=== PATIENT | male | born 1960 | race Caucasian/White ===

== ENCOUNTER 2018-06-01 17:55 | Inpatient (IN) ==
[2018-06-01] MEDS ORDERED: Folic Acid 1 MG in 0.9 % Sodium Chloride 50 ML IVPB ONE (18:40)
[2018-06-01] MEDS ORDERED: Thiamine (B-1) 100 MG in 0.9 % Sodium Chloride 50 ML IVPB ONE (18:40)
[2018-06-01] MEDS ORDERED: 0.9 % Sodium Chloride 500 ML IVC ONE (18:40)
[2018-06-01] MEDS ORDERED: MVI, adult with vitamin K 10 ML in 0.9 % Sodium Chloride 1,000 ML IVC ONE (18:40)
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
[2018-06-01 19:07] LABS: Basophils # 0.1 K/mcL (0.0-0.2); Basophils % 0.9 %; Eosinophils # 0.3 K/mcL (0.0-0.6); Hematocrit 50.7 % (37.5-50.1); Immature Granulocytes % 0.4 % (0-4); Lymphocytes # 1.6 K/mcL (0.6-4.6); Lymphocytes % 12.2 %; Mean Corpuscular HGB Conc 33.5 g/dL (31.6-35.5); Mean Corpuscular Volume 92.3 fL (83.0-100.0); Mean Platelet Volume 8.8 fL (9.4-12.4); Monocytes # 0.8 K/mcL (0.0-1.3); Monocytes % 6.1 %; Neutrophils # 9.9 K/mcL (1.6-8.9); Platelet Count 343 K/mcL (140-400); Red Blood Count 5.49 M/mcL (4.19-5.50); Segmented Neutrophils % 78.4 %
[2018-06-01 19:12] LABS: Prothrombin Time 10.9 Seconds (9.4-12.1)
[2018-06-01 19:29] LABS: Alanine Aminotransferase 18 Units/L (7-52); Albumin 4.5 g/dL (3.5-5.7); Albumin/Globulin Ratio 1.4 (1.1-2.2); Alkaline Phosphatase 94 Units/L (34-104); Aspartate Amino Transferase 25 Units/L (13-39); BUN/Creatinine Ratio 9 (6-26); Bilirubin,Total 0.6 mg/dL (0.3-1.0); Blood Urea Nitrogen 7 mg/dL (6-20); Calcium 9.3 mg/dL (8.6-10.3); Carbon Dioxide 26 mEq/L (23-29); Chloride 105 mEq/L (98-107); Ethanol 219 mg/dL (Less than 10); Globulin 3.2 g/dL (2.4-3.5); Glucose 88 mg/dL (70-105); Magnesium 2.2 mg/dL (1.6-2.6); Osmolality,Calculated 287 (280-300); Phosphorous 3.6 mg/dL (2.7-4.5); Potassium 4.1 mEq/L (3.5-5.1); Sodium 140 mEq/L (136-145); Total Protein 7.7 g/dL (6.4-8.9); eGFR For Non-African Americans > 60 (> 60)
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
[2018-06-01 20:26] LABS: Bilirubin,Urine Negative (Negative); Blood,Urine Negative (Negative); Clarity,Urine Clear (Clear); Color,Urine Yellow (Yellow); Glucose,Urine (UA) Normal (Normal); Ketones,Urine Trace mg/dL (Negative); Leukocyte Esterase,Urine Trace (Negative); Nitrite,Urine Negative (Negative); PH,Urine 5.5 pH Units (5.0-8.0); Protein,Urine Trace mg/dL (Neg-Trace); Specific Gravity,Urine >= 1.030 (1.010-1.025); Urobilinogen,Urine Normal (Normal)
[2018-06-01 20:27] LABS: Bacteria,Urine None Seen per hpf (None-Few); Hyaline Casts,Urine None Seen per lpf (None-Few); Squamous Epithelial Cell,Urine Few per lpf (None-Few); WBC,Urine 0-3 per hpf (0-3)
[2018-06-01 20:35] LABS: Amphetamine Screen,Urine Negative ng/mL (Cutoff=1000); Barbiturate Screen,Urine Negative ng/mL (Cutoff=200); Benzodiazepines Screen,Urine Negative ng/mL (Cutoff=200); Cannabinoid Screen,Urine Positive ng/mL (Cutoff = 50); Cocaine Screen,Urine Negative ng/mL (Cutoff= 300); Opiate Screen,Urine Negative ng/mL (Cutoff=300); Phencyclidine Screen,Urine Negative ng/mL (Cutoff=25)
[2018-06-01] MEDS ORDERED: *HR* LORazepam 2 MG/ML VIAL IVP ONE (20:40)
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
[2018-06-02] MEDS ORDERED: Ipratropium/Albuterol Neb 3 ML IH PRN (00:17)
[2018-06-02] MEDS: Ringers Solution, Lactated 1,000 ML IVC SCH ×3 (00:17→22:29)
[2018-06-02] MEDS: *HR* Heparin 5,000 UNIT/ML VIAL SQ SCH ×4 (00:24→22:32)
[2018-06-02 05:31] LABS: Basophils # 0.1 K/mcL (0.0-0.2); Basophils % 0.8 %; Eosinophils # 0.3 K/mcL (0.0-0.6); Eosinophils % 4.1 %; Hematocrit 43.7 % (37.5-50.1); Immature Granulocytes % 0.5 % (0-4); Lymphocytes # 1.3 K/mcL (0.6-4.6); Lymphocytes % 16.1 %; Mean Corpuscular HGB Conc 33.6 g/dL (31.6-35.5); Mean Corpuscular Hemoglobin 31.4 pg (28.0-33.3); Mean Corpuscular Volume 93.4 fL (83.0-100.0); Mean Platelet Volume 9.3 fL (9.4-12.4); Monocytes # 0.7 K/mcL (0.0-1.3); Neutrophils # 5.8 K/mcL (1.6-8.9); Platelet Count 274 K/mcL (140-400); Red Blood Count 4.68 M/mcL (4.19-5.50); Red Cell Distribution Width 14.1 % (11.5-14.5); Segmented Neutrophils % 70.5 %
[2018-06-02 05:32] LABS: Hemoglobin 14.7 g/dL (12.9-16.9)
[2018-06-02 05:54] LABS: Alanine Aminotransferase 13 Units/L (7-52); Albumin 3.4 g/dL (3.5-5.7); Albumin/Globulin Ratio 1.5 (1.1-2.2); Alkaline Phosphatase 76 Units/L (34-104); Aspartate Amino Transferase 18 Units/L (13-39); BUN/Creatinine Ratio 11 (6-26); Bilirubin,Total 0.6 mg/dL (0.3-1.0); Blood Urea Nitrogen 9 mg/dL (6-20); Calcium 8.3 mg/dL (8.6-10.3); Carbon Dioxide 27 mEq/L (23-29); Chloride 110 mEq/L (98-107); Globulin 2.2 g/dL (2.4-3.5); Glucose 129 mg/dL (70-105); Osmolality,Calculated 294 (280-300); Sodium 142 mEq/L (136-145); Total Protein 5.6 g/dL (6.4-8.9); eGFR For Non-African Americans > 60 (> 60)
[2018-06-02] MEDS: Gabapentin 400 MG CAPSULE PO SCH ×3 (08:50→22:31)
[2018-06-02] MEDS: Folic Acid 1 MG TABLET PO SCH (08:50)
[2018-06-02] MEDS: Multivit/Ca/Min/Fe/FA 1 TAB TABLET PO SCH (08:50)
[2018-06-02] MEDS: Thiamine (B-1) 100 MG TABLET PO SCH (08:50)
[2018-06-02] MEDS: (Buprenorphine Hcl/Naloxone Hcl [Suboxone 8 Mg-2 Mg SL) SL SCH (09:37)
[2018-06-02] MEDS: *HR* Buprenorphine HCl 2 MG SUBLINGUAL TABLET SL SCH (11:05)
[2018-06-03 04:16] LABS: Basophils # 0.1 K/mcL (0.0-0.2); Basophils % 0.5 %; Eosinophils # 0.4 K/mcL (0.0-0.6); Eosinophils % 3.8 %; Hemoglobin 13.8 g/dL (12.9-16.9); Immature Granulocytes % 0.4 % (0-4); Lymphocytes # 1.4 K/mcL (0.6-4.6); Lymphocytes % 14.7 %; Mean Corpuscular HGB Conc 33.7 g/dL (31.6-35.5); Mean Corpuscular Volume 92.1 fL (83.0-100.0); Mean Platelet Volume 9.5 fL (9.4-12.4); Monocytes # 0.7 K/mcL (0.0-1.3); Neutrophils # 7.1 K/mcL (1.6-8.9); Platelet Count 267 K/mcL (140-400); Red Blood Count 4.45 M/mcL (4.19-5.50); Red Cell Distribution Width 13.8 % (11.5-14.5); Segmented Neutrophils % 73.6 %
[2018-06-03 04:35] LABS: BUN/Creatinine Ratio 14 (6-26); Blood Urea Nitrogen 11 mg/dL (6-20); Calcium 8.6 mg/dL (8.6-10.3); Carbon Dioxide 30 mEq/L (23-29); Chloride 108 mEq/L (98-107); Glucose 98 mg/dL (70-105); Osmolality,Calculated 289 (280-300); Potassium 4.1 mEq/L (3.5-5.1); Sodium 140 mEq/L (136-145); eGFR For Non-African Americans > 60 (> 60)
[2018-06-03] MEDS: Ringers Solution, Lactated 1,000 ML IVC SCH ×4 (06:27→21:25)
[2018-06-03] MEDS: *HR* Heparin 5,000 UNIT/ML VIAL SQ SCH ×3 (06:29→21:14)
[2018-06-03] MEDS: Gabapentin 400 MG CAPSULE PO SCH ×3 (08:59→21:13)
[2018-06-03] MEDS: *HR* Buprenorphine HCl 2 MG SUBLINGUAL TABLET SL SCH (08:59)
[2018-06-03] MEDS: Folic Acid 1 MG TABLET PO SCH (09:00)
[2018-06-03] MEDS: Multivit/Ca/Min/Fe/FA 1 TAB TABLET PO SCH (09:00)
[2018-06-03] MEDS: (Buprenorphine Hcl/Naloxone Hcl [Suboxone 8 Mg-2 Mg SL) SL SCH (09:00)
[2018-06-03] MEDS: Thiamine (B-1) 100 MG TABLET PO SCH (09:00)
[2018-06-03] MEDS ORDERED: CloNIDine Patch 0.1 MG PATCH (WEEKLY) TD SCH (13:45)
--- NOTE | 2018-06-03 14:26 | Internal Med Progress Note ---
Hospitalist Progress Note - Encounter Date of Encounter: 06/03/18 Time of Encounter: 14:24 - Subjective Interval History: Patient has been shaking in both upper extremities for the last few hours. He also has been feeling anxious. He also tells me that he wants to quit drinking and wants to talk to social work regarding resources. - Exam Vitals: Temp Pulse Resp BP Pulse Ox 98.4 F 70 16 156/93 98 06/03/18 11:43 06/03/18 11:43 06/03/18 11:43 06/03/18 11:43 06/03/18 11:43 - Assessment and Plan (1) Alcohol abuse Current Visit: Yes Status: Chronic Assessment and Plan: Counseled however he is inebriated. Once more sober, psychiatric social worker assistance for detox centers. 06/03-patient is currently sober to talk to. He will need social work assistance and they have been consulted for help with alcohol abuse. He is a very high risk for withdrawal and we will continue to maintain him on CIWA protocol. He already has ongoing tremors and I will initiate clonidine patch. I will already spoken to the nurses and they will be on the monitoring for withdrawal protocol (2) Low back pain Current Visit: No Status: Chronic (3) Alcoholic intoxication Current Visit: Yes Status: Resolved Assessment and Plan: Will place on fall, aspiration and seizure precautions. Lorazepam prn. IV banana bag and ongoing fluids with LR. Will supplement lytes accordingly. Close obs. CIWA. 06/03-continue thiamine and folate acid. Education provided regarding cessation. Patient wants to be sober at this point and will initiate social work (4) COPD (chronic obstructive pulmonary disease) Current Visit: Yes Status: Chronic Assessment and Plan: Duonebs prn. (5) DVT prophylaxis Current Visit: Yes Status: Acute (6) Polycythemia Current Visit: Yes Status: Acute DVT Prophylaxis: Subcutaneous heparin - Time Spent with Patient Total time spent is greater than 50% in coordination of care (as documented) at patient's floor/unit and/or counseling patient: 25 - 35 minutes Plan of Care Discussed with: patient Internal Medicine: Result - Labs CBC & Chem 7: 06/03/18 03:54 06/03/18 03:54 Labs: Short CBC 06/03/18 Range/Units 03:54 WBC 9.7 (4.3-11.1) K/mcL Hgb 13.8 (12.9-16.9) g/dL Hct 41.0 (37.5-50.1) % Plt Count 267 (140-400) K/mcL Neutrophils # 7.1 (1.6-8.9) K/mcL BMP 06/03/18 03:54 Sodium 140 Potassium 4.1 Chloride 108 H Carbon Dioxide 30 H BUN 11 Creatinine 0.78 Glucose 98 Calcium 8.6 - ABG Interpretation ABG results: PT/INR, D-dimer PT 10.9 Seconds (9.4-12.1) 06/01/18 18:57 Consult Discharge Plan - Plan Referrals: Mason Todd MD [Primary Care Provider] - 06/10/18 1:00 pm (2) Low back pain Qualifiers: Chronicity: chronic Back pain laterality: midline Sciatica presence: with sciatica Sciatica laterality: sciatica laterality unspecified Qualified Code(s ): M54.40 - Lumbago with sciatica, unspecified side; G89.29 - Other chronic pain (3) Alcoholic intoxication Qualifiers: Complication of substance-induced condition: with unspecified complication Qualified Code(s): F10.929 - Alcohol use, unspecified with intoxication, unspecified (4) COPD (chronic obstructive pulmonary disease) Qualifiers: COPD type: emphysema Emphysema type: panlobular Qualified Code(s): J43.1 - Panlobular emphysema
[2018-06-04] MEDS: *HR* Heparin 5,000 UNIT/ML VIAL SQ SCH ×3 (06:15→21:57)
[2018-06-04] MEDS: (Buprenorphine Hcl/Naloxone Hcl [Suboxone 8 Mg-2 Mg SL) SL SCH (08:37)
[2018-06-04] MEDS: Ringers Solution, Lactated 1,000 ML IVC SCH ×3 (08:38→20:00)
[2018-06-04] MEDS: Thiamine (B-1) 100 MG TABLET PO SCH (09:01)
[2018-06-04] MEDS: Folic Acid 1 MG TABLET PO SCH (09:01)
[2018-06-04] MEDS: Multivit/Ca/Min/Fe/FA 1 TAB TABLET PO SCH (09:01)
[2018-06-04] MEDS: Gabapentin 400 MG CAPSULE PO SCH ×3 (09:01→21:56)
[2018-06-04] MEDS: *HR* Buprenorphine HCl 2 MG SUBLINGUAL TABLET SL SCH (09:01)
[2018-06-04] MEDS: *HR* LORazepam 2 MG/ML VIAL IVP PRN ×2 (09:02→18:31)
--- NOTE | 2018-06-04 15:24 | Internal Med Progress Note ---
Hospitalist Progress Note - Encounter Date of Encounter: 06/04/18 Time of Encounter: 11:45 - Subjective Interval History: Was somnolent but arousable. He received Ativan just a short while prior to my examination or increasing cIWA score - Exam Vitals: Temp Pulse Resp BP Pulse Ox 98.5 F 72 17 139/79 95 06/04/18 11:59 06/04/18 11:59 06/04/18 11:59 06/04/18 11:59 06/04/18 11:59 Exam: GENERAL: Alert, NECK: No jugulovenous distention, No carotid bruits, Carotid pulse normal contour, Supple LUNGS: Lungs clear to auscultation, Good diaphragmatic excursion CARDIAC: Normal S1 and S2; no rubs, murmurs, or gallops ABDOMEN: Abdomen soft, non-tender, BS normal, No masses or organomegaly EXTREMITIES: Mild generalized tremor seen, Extremities normal, no deformities, edema, clubbing or skin discoloration. Good capillary refill., No ulcers - Assessment and Plan (1) Alcohol abuse Current Visit: Yes Status: Chronic Assessment and Plan: Counseled however he is inebriated. 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 06/03-patient is currently sober to talk to. He will need social work assistance and they have been consulted for help with alcohol abuse. He is a very high risk for withdrawal and we will continue to maintain him on CIWA protocol. He already has ongoing tremors and I will initiate clonidine patch. I will already spoken to the nurses and they will be on the monitoring for withdrawal protocol 06/04-7th grade social studies teacher made aware and is working on getting him resources for rehabilitation. Physical therapy also has been consulted and most likely patient will need rehabilitation given his weakness and deconditioning. He remains a high risk of withdrawals and delirium tremens. We will continue supportive treatment and monitor CIWA scores closely (2) Low back pain Current Visit: No Status: Chronic Assessment and Plan: Will resume gabapentin. (3) Alcoholic intoxication Current Visit: Yes Status: Resolved (4) COPD (chronic obstructive pulmonary disease) Current Visit: Yes Status: Chronic (5) DVT prophylaxis Current Visit: Yes Status: Acute (6) Polycythemia Current Visit: Yes Status: Suspected - Time Spent with Patient Total time spent is greater than 50% in coordination of care (as documented) at patient's floor/unit and/or counseling patient: 25 - 35 minutes Plan of Care Discussed with: patient Internal Medicine: Result - Labs CBC & Chem 7: 06/03/18 03:54 06/03/18 03:54 - ABG Interpretation ABG results: PT/INR, D-dimer PT 10.9 Seconds (9.4-12.1) 06/01/18 18:57 Consult Discharge Plan - Plan Referrals: Mason Todd MD [Primary Care Provider] - 06/10/18 1:00 pm (2) Low back pain Qualifiers: Chronicity: chronic Back pain laterality: midline Sciatica presence: with sciatica Sciatica laterality: sciatica laterality unspecified Qualified Code(s ): M54.40 - Lumbago with sciatica, unspecified side; G89.29 - Other chronic pain (3) Alcoholic intoxication Qualifiers: Complication of substance-induced condition: with unspecified complication Qualified Code(s): F10.929 - Alcohol use, unspecified with intoxication, unspecified (4) COPD (chronic obstructive pulmonary disease) Qualifiers: COPD type: emphysema Emphysema type: panlobular Qualified Code(s): J43.1 - Panlobular emphysema
[2018-06-05] MEDS: Ringers Solution, Lactated 1,000 ML IVC SCH ×2 (05:56→16:01)
[2018-06-05] MEDS: *HR* Heparin 5,000 UNIT/ML VIAL SQ SCH ×3 (05:57→21:19)
[2018-06-05 09:59] LABS: Basophils % 0.5 %; Eosinophils # 0.4 K/mcL (0.0-0.6); Eosinophils % 4.7 %; Hematocrit 37.1 % (37.5-50.1); Hemoglobin 12.3 g/dL (12.9-16.9); Immature Granulocytes % 0.5 % (0-4); Lymphocytes # 1.2 K/mcL (0.6-4.6); Lymphocytes % 13.5 %; Mean Corpuscular HGB Conc 33.2 g/dL (31.6-35.5); Mean Corpuscular Hemoglobin 30.8 pg (28.0-33.3); Mean Corpuscular Volume 92.8 fL (83.0-100.0); Mean Platelet Volume 9.7 fL (9.4-12.4); Monocytes # 0.7 K/mcL (0.0-1.3); Monocytes % 7.6 %; Neutrophils # 6.3 K/mcL (1.6-8.9); Platelet Count 201 K/mcL (140-400); Red Cell Distribution Width 13.4 % (11.5-14.5); Segmented Neutrophils % 73.2 %
[2018-06-05] MEDS: Multivit/Ca/Min/Fe/FA 1 TAB TABLET PO SCH (09:59)
[2018-06-05] MEDS: Folic Acid 1 MG TABLET PO SCH (09:59)
[2018-06-05] MEDS: Gabapentin 400 MG CAPSULE PO SCH ×3 (09:59→20:38)
[2018-06-05] MEDS: Thiamine (B-1) 100 MG TABLET PO SCH (10:03)
[2018-06-05] MEDS: *HR* Buprenorphine HCl 2 MG SUBLINGUAL TABLET SL SCH (10:04)
[2018-06-05] MEDS: (Buprenorphine Hcl/Naloxone Hcl [Suboxone 8 Mg-2 Mg SL) SL SCH (10:04)
[2018-06-05] MEDS: *HR* LORazepam 2 MG/ML VIAL IVP PRN ×2 (10:05→21:19)
[2018-06-05 10:44] LABS: Alanine Aminotransferase 11 Units/L (7-52); Albumin/Globulin Ratio 1.4 (1.1-2.2); Alkaline Phosphatase 70 Units/L (34-104); Aspartate Amino Transferase 15 Units/L (13-39); BUN/Creatinine Ratio 9 (6-26); Bilirubin,Total 0.6 mg/dL (0.3-1.0); Blood Urea Nitrogen 7 mg/dL (6-20); Calcium 8.2 mg/dL (8.6-10.3); Carbon Dioxide 25 mEq/L (23-29); Chloride 107 mEq/L (98-107); Globulin 2.1 g/dL (2.4-3.5); Glucose 118 mg/dL (70-105); Osmolality,Calculated 285 (280-300); Potassium 3.8 mEq/L (3.5-5.1); Sodium 138 mEq/L (136-145); Total Protein 5.1 g/dL (6.4-8.9); eGFR For Non-African Americans > 60 (> 60)
--- NOTE | 2018-06-05 11:52 | Internal Med Progress Note ---
Hospitalist Progress Note - Encounter Date of Encounter: 06/05/18 Time of Encounter: 11:49 - Subjective Interval History: Continues to be somnolent but arousable. CIWA scores are gradually climbing up. He was noted to be more anxious early this morning by the nursing staff and slightly more tremors - Exam Vitals: Temp Pulse Resp BP Pulse Ox 98.7 F 61 15 137/85 95 06/05/18 11:31 06/05/18 11:31 06/05/18 11:31 06/05/18 11:31 06/05/18 11:31 Exam: GENERAL: Drowsy but arousable NECK: No jugulovenous distention, No carotid bruits, Carotid pulse normal contour, Supple LUNGS: Lungs clear to auscultation, Good diaphragmatic excursion CARDIAC: Normal S1 and S2; no rubs, murmurs, or gallops ABDOMEN: Abdomen soft, non-tender, BS normal, No masses or organomegaly EXTREMITIES: Generalized tremors positive PULSES: 2+ radial, 2+ carotid - Assessment and Plan (1) Alcohol abuse Current Visit: Yes Status: Chronic Assessment and Plan: Counseled however he is inebriated. Once more sober, social service agency director assistance for detox centers. 06/03-patient is currently sober to talk to. He will need social work assistance and they have been consulted for help with alcohol abuse. He is a very high risk for withdrawal and we will continue to maintain him on CIWA protocol. He already has ongoing tremors and I will initiate clonidine patch. I will already spoken to the nurses and they will be on the monitoring for withdrawal protocol 06/04-social service agency director made aware and is working on getting him resources for rehabilitation. Physical therapy also has been consulted and most likely patient will need rehabilitation given his weakness and deconditioning. He remains a high risk of withdrawals and delirium tremens. We will continue supportive treatment and monitor CIWA scores closely 06/05-CIWA score worsening. Continues to medicated with Ativan serially. High risk for full-blown delirium tremens. He wishes sobriety and wants to detox. line worker working on a plan for discharge. He also has a complicated social situation given he is on house arrest as well as will require longterm facility based on physical therapy and occupational therapy evaluation (2) Low back pain Current Visit: No Status: Chronic Assessment and Plan: Will resume gabapentin. (3) Alcoholic intoxication Current Visit: Yes Status: Resolved Assessment and Plan: Will place on fall, aspiration and seizure precautions. Lorazepam prn. IV banana bag and ongoing fluids with LR. Will supplement lytes accordingly. Close obs. CIWA. 06/03-continue thiamine and folate acid. Education provided regarding cessation. Patient wants to be sober at this point and will initiate social work 06/05-continues to be a high risk for delirium tremens. Continue thiamine and folic acid. Cessation education continued. line worker working on disposition planning (4) COPD (chronic obstructive pulmonary disease) Current Visit: Yes Status: Chronic (5) DVT prophylaxis Current Visit: Yes Status: Acute (6) Polycythemia Current Visit: Yes Status: Suspected - Time Spent with Patient Total time spent is greater than 50% in coordination of care (as documented) at patient's floor/unit and/or counseling patient: 25 - 35 minutes Plan of Care Discussed with: patient Internal Medicine: Result - Labs CBC & Chem 7: 06/05/18 09:43 06/05/18 09:43 Labs: Short CBC 06/05/18 Range/Units 09:43 WBC 8.6 (4.3-11.1) K/mcL Hgb 12.3 L D (12.9-16.9) g/dL Hct 37.1 L (37.5-50.1) % Plt Count 201 (140-400) K/mcL Neutrophils # 6.3 (1.6-8.9) K/mcL BMP 06/05/18 09:43 Sodium 138 Potassium 3.8 Chloride 107 Carbon Dioxide 25 BUN 7 Creatinine 0.76 Glucose 118 H Calcium 8.2 L Liver Function 06/05/18 Range/Units 09:43 Total Bilirubin 0.6 (0.3-1.0) mg/dL AST 15 (13-39) Units/L ALT 11 (7-52) Units/L Alkaline Phosphatase 70 (34-104) Units/L Albumin 3.0 L (3.5-5.7) g/dL - ABG Interpretation ABG results: PT/INR, D-dimer PT 10.9 Seconds (9.4-12.1) 06/01/18 18:57 Consult Discharge Plan - Plan Referrals: Mason Todd MD [Primary Care Provider] - 06/10/18 1:00 pm (2) Low back pain Qualifiers: Chronicity: chronic Back pain laterality: midline Sciatica presence: with sciatica Sciatica laterality: sciatica laterality unspecified Qualified Code(s ): M54.40 - Lumbago with sciatica, unspecified side; G89.29 - Other chronic pain (3) Alcoholic intoxication Qualifiers: Complication of substance-induced condition: with unspecified complication Qualified Code(s): F10.929 - Alcohol use, unspecified with intoxication, unspecified (4) COPD (chronic obstructive pulmonary disease) Qualifiers: COPD type: emphysema Emphysema type: panlobular Qualified Code(s): J43.1 - Panlobular emphysema
[2018-06-06] MEDS: Ringers Solution, Lactated 1,000 ML IVC SCH ×3 (00:17→17:05)
[2018-06-06] MEDS: *HR* Heparin 5,000 UNIT/ML VIAL SQ SCH (05:57)
[2018-06-06] MEDS: (Buprenorphine Hcl/Naloxone Hcl [Suboxone 8 Mg-2 Mg SL) SL SCH (08:44)
[2018-06-06] MEDS: Thiamine (B-1) 100 MG TABLET PO SCH (08:45)
[2018-06-06] MEDS: Gabapentin 400 MG CAPSULE PO SCH ×3 (08:45→20:12)
[2018-06-06] MEDS: Folic Acid 1 MG TABLET PO SCH (08:45)
[2018-06-06] MEDS: *HR* Buprenorphine HCl 2 MG SUBLINGUAL TABLET SL SCH (08:45)
[2018-06-06] MEDS: Multivit/Ca/Min/Fe/FA 1 TAB TABLET PO SCH (08:45)
[2018-06-06 11:25] LABS: Hematocrit 41.7 % (37.5-50.1); Hemoglobin 13.8 g/dL (12.9-16.9)
[2018-06-06] MEDS: *HR* LORazepam 2 MG/ML VIAL IVP PRN (15:08)
--- NOTE | 2018-06-06 15:54 | Internal Med Progress Note ---
Hospitalist Progress Note - Encounter Date of Encounter: 06/06/18 Time of Encounter: 11:00 - Subjective Interval History: Patient seen and examined at bedside. Tremors on exam. Pt. states that he is feeling better but tremors are bothersome today. He states that he joined the [facility] for alcohol abuse approx. one week ago but continued drinking. States that he knows he has a problem and needs rehabilitation. He also reports that he needs to go to [facility] for rehab but is currently under house arrest. SW trying to find solution. Pt. denies any CP, SOB, nausea, vomiting or other sx at this time. Pt. is A&O x3 and conversational on exam. - Exam Vitals: Temp Pulse Resp BP Pulse Ox 98.6 F 73 16 167/89 96 06/06/18 11:53 06/06/18 11:53 06/06/18 11:53 06/06/18 11:53 06/06/18 11:53 Exam: PHYSICAL EXAM: GENERAL: A&O x3, conversational NECK: No jugulovenous distention, No carotid bruits, Carotid pulse normal contour, Supple LUNGS: Lungs clear to auscultation, Good diaphragmatic excursion CARDIAC: Normal S1 and S2; no rubs, murmurs, or gallops ABDOMEN: Abdomen soft, non-tender, BS normal, No masses or organomegaly EXTREMITIES: Generalized tremors positive PULSES: 2+ radial, 2+ carotid PSYCHIATRIC: Anxious mood and affect SKIN: Dry and intact - Assessment and Plan (1) HTN (hypertension) Current Visit: Yes Status: Acute Assessment and Plan: Acute HTN, most likely d/t withdrawal. IVP hydralazine 10 mg every 6 hours when necessary with parameters ordered. (2) Hypocalcemia Current Visit: Yes Status: Acute Assessment and Plan: 8.2 today. PO calcium carbonate TID. Monitor f/u labs. (3) Alcohol abuse Current Visit: Yes Status: Chronic Assessment and Plan: CIWA scale continued Pt. is A&O x3 but has tremors on exam Pt. reports signing up for [facility] approx. 1 week ago but has continued to drink Pt. understands he has a problem and is willing to try rehabilitation but is currently under house arrest. SW attempting to figure out placement [facility] Continue supportive measures and monitor pt. and f/u labs (4) Low back pain Current Visit: Yes Status: Chronic Assessment and Plan: Continue gabapentin. (5) COPD (chronic obstructive pulmonary disease) Current Visit: Yes Status: Chronic Assessment and Plan: Duonebs and supplemental O2 PRN (6) Polycythemia Current Visit: Yes Status: Suspected (7) Alcoholic intoxication Current Visit: Yes Status: Resolved Assessment and Plan: Currently resolved. Continue CIWA scale and Ativan for agitation PRN Continue vitamin supplementation SW working on rehab placement d/t pts. house arrest status Monitor pt. and f/u labs (8) DVT prophylaxis Current Visit: Yes Status: Acute Assessment and Plan: Continue SQ heparin. - Summary of Assessment and Plan Summary of Assessment and Plan: Continue to work w/SW for rehab placement. - Time Spent with Patient Total time spent is greater than 50% in coordination of care (as documented) at patient's floor/unit and/or counseling patient: 25 - 35 minutes Plan of Care Discussed with: patient Internal Medicine: Result - Labs CBC & Chem 7: 06/06/18 11:11 06/05/18 09:43 Labs: Short CBC 06/06/18 Range/Units 11:11 Hgb 13.8 D (12.9-16.9) g/dL Hct 41.7 (37.5-50.1) % - ABG Interpretation ABG results: PT/INR, D-dimer PT 10.9 Seconds (9.4-12.1) 06/01/18 18:57 - VTE Documentation of Mechanical Device: Intermittent pneumatic compression device Consult Discharge Plan - Plan Referrals: Mason Todd MD [Primary Care Provider] - 06/10/18 1:00 pm (1) HTN (hypertension) Qualifiers: Hypertension type: unspecified Qualified Code(s): I10 - Essential (primary) hypertension (4) Low back pain Qualifiers: Chronicity: chronic Back pain laterality: midline Sciatica presence: with sciatica Sciatica laterality: sciatica laterality unspecified Qualified Code(s ): M54.40 - Lumbago with sciatica, unspecified side; G89.29 - Other chronic pain (5) COPD (chronic obstructive pulmonary disease) Qualifiers: COPD type: emphysema Emphysema type: panlobular Qualified Code(s): J43.1 - Panlobular emphysema (7) Alcoholic intoxication Qualifiers: Complication of substance-induced condition: with unspecified complication Qualified Code(s): F10.929 - Alcohol use, unspecified with intoxication, unspecified
[2018-06-06 17:13] LABS: Hematocrit 39.2 % (37.5-50.1); Hemoglobin 13.3 g/dL (12.9-16.9)
[2018-06-06 22:52] LABS: Hematocrit 38.5 % (37.5-50.1); Hemoglobin 13.1 g/dL (12.9-16.9)
[2018-06-07 06:13] LABS: Basophils # 0.1 K/mcL (0.0-0.2); Basophils % 0.7 %; Eosinophils # 0.4 K/mcL (0.0-0.6); Eosinophils % 4.6 %; Hematocrit 39.9 % (37.5-50.1); Hemoglobin 13.2 g/dL (12.9-16.9); Immature Granulocytes % 0.4 % (0-4); Lymphocytes # 1.5 K/mcL (0.6-4.6); Lymphocytes % 16.9 %; Mean Corpuscular HGB Conc 33.1 g/dL (31.6-35.5); Mean Corpuscular Hemoglobin 30.5 pg (28.0-33.3); Mean Corpuscular Volume 92.1 fL (83.0-100.0); Mean Platelet Volume 10.2 fL (9.4-12.4); Monocytes # 0.8 K/mcL (0.0-1.3); Monocytes % 9.3 %; Neutrophils # 6.1 K/mcL (1.6-8.9); Platelet Count 224 K/mcL (140-400); Red Blood Count 4.33 M/mcL (4.19-5.50); Red Cell Distribution Width 13.5 % (11.5-14.5); Segmented Neutrophils % 68.1 %
[2018-06-07 06:35] LABS: Alanine Aminotransferase 13 Units/L (7-52); Albumin 3.2 g/dL (3.5-5.7); Albumin/Globulin Ratio 1.4 (1.1-2.2); Alkaline Phosphatase 70 Units/L (34-104); Aspartate Amino Transferase 15 Units/L (13-39); BUN/Creatinine Ratio 10 (6-26); Bilirubin,Total 0.6 mg/dL (0.3-1.0); Blood Urea Nitrogen 8 mg/dL (6-20); Calcium 8.4 mg/dL (8.6-10.3); Carbon Dioxide 26 mEq/L (23-29); Chloride 108 mEq/L (98-107); Globulin 2.3 g/dL (2.4-3.5); Glucose 95 mg/dL (70-105); Osmolality,Calculated 292 (280-300); Potassium 3.8 mEq/L (3.5-5.1); Sodium 142 mEq/L (136-145); Total Protein 5.5 g/dL (6.4-8.9); eGFR For Non-African Americans > 60 (> 60)
[2018-06-07] MEDS: Thiamine (B-1) 100 MG TABLET PO SCH (09:35)
[2018-06-07] MEDS: (Buprenorphine Hcl/Naloxone Hcl [Suboxone 8 Mg-2 Mg SL) SL SCH (09:35)
[2018-06-07] MEDS: *HR* Buprenorphine HCl 2 MG SUBLINGUAL TABLET SL SCH (09:35)
[2018-06-07] MEDS: Gabapentin 400 MG CAPSULE PO SCH ×3 (09:35→20:25)
[2018-06-07] MEDS: Multivit/Ca/Min/Fe/FA 1 TAB TABLET PO SCH (09:35)
[2018-06-07] MEDS: Folic Acid 1 MG TABLET PO SCH (09:35)
[2018-06-07] MEDS: *HR* LORazepam 2 MG/ML VIAL IVP PRN (09:42)
[2018-06-07] MEDS ORDERED: *HR* LORazepam 2 MG/ML VIAL IVP ONE (10:26)
--- NOTE | 2018-06-07 14:24 | Internal Med Progress Note ---
Hospitalist Progress Note - Encounter Date of Encounter: 06/07/18 Time of Encounter: 09:20 (Still awaiting SW placement d/t weekend) - Subjective Interval History: Patient seen and examined at bedside. Tremors improved. Pt. states that he is feeling better today. Pt. states that he does not want to relapse and start drinking. Awaiting SW to find placement solution. Pt. denies any CP, SOB, nausea , vomiting or other sx at this time. Pt. is A&O x3 and conversational on exam. - Exam Vitals: Temp Pulse Resp BP Pulse Ox 98.2 F 75 17 154/83 97 06/07/18 12:09 06/07/18 12:09 06/07/18 12:09 06/07/18 12:06/07/18 12:09 Exam: PHYSICAL EXAM: GENERAL: A&O x3, conversational NECK: No jugulovenous distention, No carotid bruits, Carotid pulse normal contour, Supple LUNGS: Lungs clear to auscultation, Good diaphragmatic excursion CARDIAC: Normal S1 and S2; no rubs, murmurs, or gallops ABDOMEN: Abdomen soft, non-tender, BS normal, No masses or organomegaly EXTREMITIES: Tremors improved greatly PULSES: 2+ radial, 2+ carotid PSYCHIATRIC: Normal mood and affect SKIN: Dry and intact - Assessment and Plan (1) HTN (hypertension) Current Visit: Yes Status: Acute Assessment and Plan: Continue IVP hydralazine 10 mg every 6 hours when necessary with parameters ordered. (2) Hypocalcemia Current Visit: Yes Status: Acute Assessment and Plan: 8.4 today. PO calcium carbonate TID. Monitor f/u labs. (3) Alcohol abuse Current Visit: Yes Status: Chronic Assessment and Plan: CIWA scale continued Pt. is A&O x3 Pt. states he does not want to relapse Continue Ativan as needed Continue supportive measures and monitor pt. and f/u labs (4) Low back pain Current Visit: Yes Status: Chronic Assessment and Plan: Continue gabapentin. (5) COPD (chronic obstructive pulmonary disease) Current Visit: Yes Status: Chronic Assessment and Plan: Duonebs and supplemental O2 PRN (6) Polycythemia Current Visit: Yes Status: Resolved Assessment and Plan: Resolved. (7) Alcoholic intoxication Current Visit: Yes Status: Resolved Assessment and Plan: Currently resolved. Continue CIWA scale and Ativan for agitation PRN Continue vitamin supplementation SW working on rehab placement d/t pts. house arrest status Monitor pt. and f/u labs (8) DVT prophylaxis Current Visit: Yes Status: Acute Assessment and Plan: Continue SQ heparin. - Summary of Assessment and Plan Summary of Assessment and Plan: Continue to work w/SW for rehab placement. - Time Spent with Patient Total time spent is greater than 50% in coordination of care (as documented) at patient's floor/unit and/or counseling patient: less than 15 minutes Plan of Care Discussed with: patient Internal Medicine: Result - Labs CBC & Chem 7: 06/07/18 05:29 06/07/18 05:29 Labs: Short CBC 06/06/18 06/06/18 06/07/18 Range/Units 17:03 22:43 05:29 WBC 9.0 (4.3-11.1) K/mcL Hgb 13.3 13.1 13.2 (12.9-16.9) g/dL Hct 39.2 38.5 39.9 (37.5-50.1) % Plt Count 224 (140-400) K/mcL Neutrophils # 6.1 (1.6-8.9) K/mcL BMP 06/07/18 05:29 Sodium 142 Potassium 3.8 Chloride 108 H Carbon Dioxide 26 BUN 8 Creatinine 0.83 Glucose 95 Calcium 8.4 L Liver Function 06/07/18 Range/Units 05:29 Total Bilirubin 0.6 (0.3-1.0) mg/dL AST 15 (13-39) Units/L ALT 13 (7-52) Units/L Alkaline Phosphatase 70 (34-104) Units/L Albumin 3.2 L (3.5-5.7) g/dL - ABG Interpretation ABG results: PT/INR, D-dimer PT 10.9 Seconds (9.4-12.1) 06/01/18 18:57 - VTE Documentation of Mechanical Device: Intermittent pneumatic compression device Consult Discharge Plan - Plan Referrals: Mason Todd MD [Primary Care Provider] - 06/10/18 1:00 pm (1) HTN (hypertension) Qualifiers: Hypertension type: unspecified Qualified Code(s): I10 - Essential (primary) hypertension (4) Low back pain Qualifiers: Chronicity: chronic Back pain laterality: midline Sciatica presence: with sciatica Sciatica laterality: sciatica laterality unspecified Qualified Code(s ): M54.40 - Lumbago with sciatica, unspecified side; G89.29 - Other chronic pain (5) COPD (chronic obstructive pulmonary disease) Qualifiers: COPD type: emphysema Emphysema type: panlobular Qualified Code(s): J43.1 - Panlobular emphysema (7) Alcoholic intoxication Qualifiers: Complication of substance-induced condition: with unspecified complication Qualified Code(s): F10.929 - Alcohol use, unspecified with intoxication, unspecified
[2018-06-08] MEDS: *HR* LORazepam 2 MG/ML VIAL IVP PRN ×2 (05:11→12:37)
[2018-06-08] MEDS: (Buprenorphine Hcl/Naloxone Hcl [Suboxone 8 Mg-2 Mg SL) SL SCH (07:56)
[2018-06-08] MEDS: *HR* Buprenorphine HCl 2 MG SUBLINGUAL TABLET SL SCH (08:09)
[2018-06-08] MEDS: Folic Acid 1 MG TABLET PO SCH (08:09)
[2018-06-08] MEDS: Gabapentin 400 MG CAPSULE PO SCH ×2 (08:09→13:49)
[2018-06-08] MEDS: Thiamine (B-1) 100 MG TABLET PO SCH (08:09)
[2018-06-08] MEDS: Multivit/Ca/Min/Fe/FA 1 TAB TABLET PO SCH (08:09)
[2018-06-08 08:58] LABS: Basophils # 0.1 K/mcL (0.0-0.2); Basophils % 0.8 %; Eosinophils # 0.5 K/mcL (0.0-0.6); Eosinophils % 4.9 %; Hematocrit 46.4 % (37.5-50.1); Hemoglobin 15.4 g/dL (12.9-16.9); Immature Granulocytes % 0.7 % (0-4); Lymphocytes # 1.5 K/mcL (0.6-4.6); Lymphocytes % 16.5 %; Mean Corpuscular HGB Conc 33.2 g/dL (31.6-35.5); Mean Corpuscular Hemoglobin 31.4 pg (28.0-33.3); Mean Corpuscular Volume 94.7 fL (83.0-100.0); Mean Platelet Volume 10.2 fL (9.4-12.4); Monocytes # 0.7 K/mcL (0.0-1.3); Monocytes % 7.8 %; Neutrophils # 6.4 K/mcL (1.6-8.9); Platelet Count 247 K/mcL (140-400); Red Cell Distribution Width 13.5 % (11.5-14.5); Segmented Neutrophils % 69.3 %
[2018-06-08 09:26] LABS: Alanine Aminotransferase 15 Units/L (7-52); Albumin 3.7 g/dL (3.5-5.7); Albumin/Globulin Ratio 1.3 (1.1-2.2); Alkaline Phosphatase 77 Units/L (34-104); Aspartate Amino Transferase 17 Units/L (13-39); BUN/Creatinine Ratio 13 (6-26); Bilirubin,Total 0.6 mg/dL (0.3-1.0); Blood Urea Nitrogen 12 mg/dL (6-20); Calcium 8.9 mg/dL (8.6-10.3); Carbon Dioxide 27 mEq/L (23-29); Chloride 104 mEq/L (98-107); Globulin 2.8 g/dL (2.4-3.5); Glucose 149 mg/dL (70-105); Osmolality,Calculated 289 (280-300); Potassium 4.1 mEq/L (3.5-5.1); Sodium 138 mEq/L (136-145); Total Protein 6.5 g/dL (6.4-8.9); eGFR For Non-African Americans > 60 (> 60)
[2018-06-08 16:08] VITALS: BP 160/90
--- NOTE | 2018-06-08 16:52 | Discharge Summary ---
- NOTES TO OUTPATIENT PROVIDER Notes to Outpatient Provider: Follow up w/PCP w/i one week of discharge. Pt. going to rehabilitation post-discharge for alcohol dependence rehabilitation. Orders not resulted at time of discharge: Pending orders 06/06/18 10:58 Fecal Hemoccult [Occult Blood,Stool] [BF] Routine Date of Encounter: 06/08/18 Time of Encounter: 11:40 - Discharge Diagnosis (1) HTN (hypertension) Priority: Primary Status: Acute Assessment and Plan: Acute hypertension likely r/t alcohol use/withdrawal No hx of HTN and no home medications Monitor Qualifiers: Hypertension type: essential hypertension Qualified Code(s): I10 - Essential (primary) hypertension (2) Alcohol abuse Priority: Primary Status: Chronic Assessment and Plan: Pt. is A&O x3 Pt. states he does not want to relapse Pt. to OP rehabilitation facility for alcohol abuse (3) Low back pain Priority: Secondary Status: Chronic Assessment and Plan: Continue gabapentin. Qualifiers: Chronicity: chronic Back pain laterality: midline Sciatica presence: with sciatica Sciatica laterality: sciatica laterality unspecified Qualified Code(s): M54.40 - Lumbago with sciatica, unspecified side; G89.29 - Other chronic pain (4) COPD (chronic obstructive pulmonary disease) Priority: Secondary Status: Chronic Assessment and Plan: Stable Qualifiers: COPD type: emphysema Emphysema type: panlobular Qualified Code(s): J43.1 - Panlobular emphysema (5) Polycythemia Priority: Primary Status: Resolved Assessment and Plan: Resolved. (6) Alcoholic intoxication Priority: Primary Status: Resolved Assessment and Plan: Currently resolved Pt. to OP rehabilitation for alcohol abuse Qualifiers: Complication of substance-induced condition: with unspecified complication Qualified Code(s): F10.929 - Alcohol use, unspecified with intoxication, unspecified (7) Hypocalcemia Priority: Primary Status: Resolved Hospital course: Mr. Brody is a 58 year old male Discharge discussed with: patient - Time Spent with Patient Total time spent providing and/or coordinating discharge services: Less than 30 minutes - Discharge Medications Home Medications: Buprenorphine HCl/Naloxone HCl [Suboxone 8 mg-2 mg Sl Film] 2 film SL DAILY 04/13 [History] Gabapentin [Neurontin] 1,200 mg PO TID 06/01/18 [History] Allergies/Adverse Reactions: 3 Allergy/AdvReac Type Severity Reaction Status Date / Time aspirin Allergy Mild Swelling Verified 04/17/16 16:42 of Lip/Tongue/Throat ibuprofen Allergy Swelling Verified 04/17/16 16:42 of Lip/Tongue/Throat Date of admission: 06/04/18 15:46 Primary care physician: Mason Todd MD Discharging clinician: Jose E Mcarthur Anticipated date of discharge: 06/08/18 - Constitutional Vitals: Temp Pulse Resp BP Pulse Ox 98.3 F 75 15 160/90 97 06/08/18 16:03 06/08/18 16:03 06/08/18 16:03 06/08/18 16:03 06/08/18 16:03 General appearance: Present: cooperative, A&O X 3, pleasant, no acute distress, answers questions appropriately Exam: Pt. alert and oriented. States he has no problems at the present time aside from wanting rehab for his alcohol dependence. Pt. states that he is not guilty of the current charges he is under house arrest for. - Head Head exam: Present: atraumatic, normocephalic - Eye Eye exam: Present: PERRL, conjuntiva pink, sclera anicteric Pupils: Present: PERRL - ENT ENT exam: Present: normal exam - Neck Neck exam general surgery: Present: normal inspection, supple, trachea midline. Absent: lymphadenopathy - Respiratory Respiratory exam: Present: CTAB. Absent: accessory muscle use, rales, rhonchi, wheezes - GI/Abdominal GI/Abdominal exam: Present: normal bowel sounds, soft, no peritoneal signs. Absent: distended, tenderness - Rectal Rectal exam: Present: deferred - Additional comments: exam deferred. - Extremities Exam Extremities exam: Present: warm, radial pulses palpable and symmetrical. Absent : calf tenderness, cyanotic, pedal edema - Back Exam Back exam: Present: normal inspection - Neurological Exam Neurological exam: Present: alert, CN II-XII intact, oriented X3, no focal deficits. Absent: pronater drift, facial droop, speech deficit - Psychiatric Psychiatric exam: Present: normal affect, normal mood - Skin Skin exam: Present: dry, intact - Patient Status Disposition: Transfer Inpatient Rehab Fac Condition: Fair Functional capacity at discharge: independent ambulation Overall status at discharge: patient is progressing back to baseline - Discharge Instructions Follow Up With: Mason Todd MD [Primary Care Provider] - 06/10/18 1:00 pm - Diet and Activity Activity: increase activity as tolerated Diet: advance to your usual diet - VTE Documentation of Mechanical Device: Intermittent pneumatic compression device
--- NOTE | 2018-06-08 17:22 | Physician Discharge Referral ---
ExtendedCare Referral Info Transfer To: [facility] Provider in Charge: Jose E Mcarthur Provider in Charge after Transfer: PCP (Pt. requires alcohol rehabilitation) - Diagnosis (1) HTN (hypertension) Priority: Primary Status: Acute (2) Alcohol abuse Priority: Primary Status: Chronic (3) Low back pain Priority: Secondary Status: Chronic (4) COPD (chronic obstructive pulmonary disease) Priority: Secondary Status: Chronic (5) Polycythemia Priority: Primary Status: Resolved (6) Alcoholic intoxication Priority: Primary Status: Resolved (7) Hypocalcemia Priority: Primary Status: Resolved Prognosis: Fair Aware of Diagnosis: Patient - Transfer Medications Home Medications: Buprenorphine HCl/Naloxone HCl [Suboxone 8 mg-2 mg Sl Film] 2 film SL DAILY 04/13 [History] Gabapentin [Neurontin] 1,200 mg PO TID 06/01/18 [History] Allergies/Adverse Reactions: 3 Allergy/AdvReac Type Severity Reaction Status Date / Time aspirin Allergy Mild Swelling Verified 04/17/16 16:42 of Lip/Tongue/Throat ibuprofen Allergy Swelling Verified 04/17/16 16:42 of Lip/Tongue/Throat - Respiratory Orders Smoking Cessation: Smoking cessation has been advised. For more information, call the [place] Tobacco Quit Line at [phone]. - Advance Directives Code Status: Full Code - Mobility Orders Ambulate - Rehabiliation Orders Rehab Potential: Fair - Diet Orders Regular CERTIFICATION: I certify that the transfer of the above named patient to an Extended Care Facility is necessary for the continuing treatment of the diagnosis listed. The above information is true and accurate reflection of patient's current condition. Confidential - Redisclosure prohibited without a patient's written consent.
== END 2018-06-08 18:55 | DRG 897 ==
LOC: 3BNU 17:55 → EMEROO 17:55 → SUATTDRO 21:10 → 3BNU 21:51
PROVIDERS: ADMIT Internal Medicine; ATTEND Internal Medicine

== ENCOUNTER 2020-09-18 15:38 | Observation (INO) ==
[2020-09-18 16:43] LABS: Bilirubin,Urine Negative (Negative); Blood,Urine Negative (Negative); Clarity,Urine Clear (Clear); Color,Urine Colorless (Yellow); Glucose,Urine (UA) Normal (Normal); Ketones,Urine Negative (Negative); Leukocyte Esterase,Urine Negative (Negative); Nitrite,Urine Negative (Negative); PH,Urine 5.5 pH Units (5.0-8.0); Protein,Urine Negative (Neg-Trace); Specific Gravity,Urine 1.008 (1.010-1.025); Urobilinogen,Urine Normal (Normal)
[2020-09-18 16:51] LABS: Basophils # 0.1 K/mcL (0.0-0.2); Basophils % 0.8 %; Eosinophils # 0.4 K/mcL (0.0-0.6); Eosinophils % 4.4 %; Hematocrit 44.3 % (37.5-50.1); Hemoglobin 14.4 g/dL (12.9-16.9); Immature Granulocytes % 0.4 % (0-4); Lymphocytes # 2.3 K/mcL (0.6-4.6); Lymphocytes % 22.8 %; Mean Corpuscular HGB Conc 32.5 g/dL (31.6-35.5); Mean Corpuscular Hemoglobin 30.1 pg (28.0-33.3); Mean Corpuscular Volume 92.5 fL (83.0-100.0); Mean Platelet Volume 9.2 fL (9.4-12.4); Monocytes # 0.8 K/mcL (0.0-1.3); Monocytes % 7.4 %; Neutrophils # 6.5 K/mcL (1.6-8.9); Platelet Count 293 K/mcL (140-400); Red Blood Count 4.79 M/mcL (4.19-5.50); Segmented Neutrophils % 64.2 %; White Blood Count 10.1 K/mcL (4.3-11.1)
[2020-09-18 16:52] LABS: Amphetamine Screen,Urine Negative ng/mL (Cutoff=1000); Barbiturate Screen,Urine Negative ng/mL (Cutoff=200); Benzodiazepines Screen,Urine Negative ng/mL (Cutoff=200); Cannabinoid Screen,Urine Negative ng/mL (Cutoff = 50); Cocaine Screen,Urine Negative ng/mL (Cutoff= 300); Opiate Screen,Urine Negative ng/mL (Cutoff=300); Phencyclidine Screen,Urine Negative ng/mL (Cutoff=25)
[2020-09-18 16:54] LABS: Acetaminophen < 10 mcg/mL (10-20); BUN/Creatinine Ratio 17 (6-26); Blood Urea Nitrogen 16 mg/dL (6-20); Calcium 9.3 mg/dL (8.6-10.3); Carbon Dioxide 21 mEq/L (23-29); Chloride 104 mEq/L (98-107); Chol/HDL Ratio 3.4 (0-4.9); Cholesterol 217 mg/dL (< 200); Ethanol 275 mg/dL (Less than 10); Glucose 137 mg/dL (70-105); HDL Cholesterol 63 mg/dL (40-59); LDL Cholesterol,Calculated 117 mg/dL (< 100); Osmolality,Calculated 285 (280-300); Potassium 4.1 mEq/L (3.5-5.1); Salicylate < 2.5 mg/dL (15.0-30.0); Sodium 136 mEq/L (136-145); Triglycerides 187 mg/dL (< 150); eGFR For African Americans > 60 (> 60); eGFR For Non-African Americans > 60 (> 60)
[2020-09-18] MEDS ORDERED: Ziprasidone 20 MG in Water for inj. (sterile) 1 ML IM ONE (16:58)
[2020-09-18 17:34] LABS: Alanine Aminotransferase 15 Units/L (7-52); Albumin 4.5 g/dL (3.5-5.7); Albumin/Globulin Ratio 1.8 (1.1-2.2); Alkaline Phosphatase 68 Units/L (34-104); Aspartate Amino Transferase 19 Units/L (13-39); Bilirubin,Direct 0.1 mg/dL (0.0-0.2); Bilirubin,Indirect 0.2 mg/dL (0.0-1.0); Bilirubin,Total 0.3 mg/dL (0.3-1.0); Globulin 2.5 g/dL (2.4-3.5)
[2020-09-18 17:53] LABS: Troponin I < 0.03 ng/mL (< 0.04)
[2020-09-18] MEDS ORDERED: Ondansetron 4 MG/2 ML VIAL IVP PRN (20:34)
[2020-09-18] MEDS ORDERED: Naloxone 0.4 MG/ML INJ IVP PRN (20:34)
[2020-09-18] MEDS ORDERED: *HR* LORazepam 2 MG/ML VIAL IVP PRN ×3 (20:34)
[2020-09-18] MEDS ORDERED: *HR* Dextrose 50 % in Water (Vial) 50 ML VIAL IVP PRN (20:58)
[2020-09-18] MEDS ORDERED: D5% in Water 1,000 ML IVC PRN (20:58)
[2020-09-18] MEDS ORDERED: Dextrose Gel 15 GM/37.5 ML TUBE PO PRN ×2 (20:58)
[2020-09-18] MEDS ORDERED: Thiamine (B-1) 100 MG, Folic Acid 1 MG, MVI, adult with vitamin K 10 ML in 0.9 % Sodi... IVPB SCH (21:00)
[2020-09-18] MEDS: Insulin LISPRO 300 UNITS/3 ML VIAL SQ SCH (22:13)
[2020-09-19 01:41] LABS: Basophils # 0.1 K/mcL (0.0-0.2); Basophils % 0.8 %; Eosinophils # 0.5 K/mcL (0.0-0.6); Eosinophils % 6.1 %; Hematocrit 40.6 % (37.5-50.1); Immature Granulocytes % 0.4 % (0-4); Lymphocytes # 2.5 K/mcL (0.6-4.6); Lymphocytes % 34.3 %; Mean Corpuscular Hemoglobin 30.2 pg (28.0-33.3); Mean Corpuscular Volume 94.4 fL (83.0-100.0); Mean Platelet Volume 9.3 fL (9.4-12.4); Monocytes # 0.5 K/mcL (0.0-1.3); Neutrophils # 3.8 K/mcL (1.6-8.9); Platelet Count 244 K/mcL (140-400); Red Cell Distribution Width 14.1 % (11.5-14.5); Segmented Neutrophils % 51.4 %; White Blood Count 7.3 K/mcL (4.3-11.1)
[2020-09-19 01:56] LABS: Alanine Aminotransferase 13 Units/L (7-52); Albumin 3.9 g/dL (3.5-5.7); Albumin/Globulin Ratio 1.8 (1.1-2.2); Alkaline Phosphatase 64 Units/L (34-104); Aspartate Amino Transferase 17 Units/L (13-39); BUN/Creatinine Ratio 14 (6-26); Bilirubin,Total 0.3 mg/dL (0.3-1.0); Blood Urea Nitrogen 14 mg/dL (6-20); Calcium 8.7 mg/dL (8.6-10.3); Carbon Dioxide 25 mEq/L (23-29); Chloride 108 mEq/L (98-107); Globulin 2.2 g/dL (2.4-3.5); Glucose 80 mg/dL (70-105); Magnesium 1.7 mg/dL (1.6-2.6); Osmolality,Calculated 289 (280-300); Phosphorous 3.6 mg/dL (2.7-4.5); Potassium 4.4 mEq/L (3.5-5.1); Sodium 140 mEq/L (136-145); Total Protein 6.1 g/dL (6.4-8.9); eGFR For African Americans > 60 (> 60); eGFR For Non-African Americans > 60 (> 60)
[2020-09-19] MEDS: Insulin LISPRO 300 UNITS/3 ML VIAL SQ SCH ×2 (08:08→12:14)
[2020-09-19] MEDS ORDERED: hydrOXYzine pamoate 25 MG CAPSULE PO PRN (08:56)
[2020-09-19] MEDS ORDERED: risperiDONE 1 MG TABLET PO SCH (09:00)
[2020-09-19] MEDS ORDERED: OXcarbazepine 150 MG TABLET PO SCH (09:00)
[2020-09-19 10:54] VITALS: BP 153/88
[2020-09-19 12:41] LABS: Estimated Average Glucose 148 mg/dl
[2020-09-19] MEDS ORDERED: Mirtazapine 15 MG TABLET PO SCH (21:00)
== END 2020-09-19 15:52 ==
LOC: EMEROOARM 15:38 → 3BNU 15:38
PROVIDERS: ADMIT Internal Medicine; ATTEND Internal Medicine

== ENCOUNTER 2021-04-19 18:03 | Inpatient (IN) ==
[2021-04-19] MEDS ORDERED: 0.9 % Sodium Chloride 1,000 ML IVC ONE ×2 (19:49→20:11)
[2021-04-19 19:59] LABS: Bilirubin,Urine Negative (Negative); Blood,Urine Negative (Negative); Clarity,Urine Clear (Clear); Color,Urine Colorless (Yellow); Glucose,Urine (UA) Normal (Normal); Ketones,Urine Negative (Negative); Leukocyte Esterase,Urine Negative (Negative); Nitrite,Urine Negative (Negative); Protein,Urine Negative (Neg-Trace); Specific Gravity,Urine 1.005 (1.010-1.025); Urobilinogen,Urine Normal (Normal)
[2021-04-19 20:03] LABS: Basophils # 0.1 K/mcL (0.0-0.2); Basophils % 1.2 %; Eosinophils # 0.3 K/mcL (0.0-0.6); Eosinophils % 3.9 %; Hematocrit 42.3 % (37.5-50.1); Immature Granulocytes % 1.7 % (0-4); Lymphocytes % 25.6 %; Mean Corpuscular HGB Conc 33.1 g/dL (31.6-35.5); Mean Corpuscular Hemoglobin 30.2 pg (28.0-33.3); Mean Corpuscular Volume 91.4 fL (83.0-100.0); Mean Platelet Volume 8.9 fL (9.4-12.4); Monocytes # 0.4 K/mcL (0.0-1.3); Monocytes % 5.6 %; Neutrophils # 4.8 K/mcL (1.6-8.9); Platelet Count 319 K/mcL (140-400); Red Blood Count 4.63 M/mcL (4.19-5.50); Red Cell Distribution Width 15.9 % (11.5-14.5); White Blood Count 7.7 K/mcL (4.3-11.1)
[2021-04-19 20:10] LABS: Amphetamine Screen,Urine Negative ng/mL (Cutoff=1000); Barbiturate Screen,Urine Negative ng/mL (Cutoff=200); Benzodiazepines Screen,Urine Negative ng/mL (Cutoff=200); Cannabinoid Screen,Urine Negative ng/mL (Cutoff = 50); Cocaine Screen,Urine Negative ng/mL (Cutoff= 300); Opiate Screen,Urine Negative ng/mL (Cutoff=300); Phencyclidine Screen,Urine Negative ng/mL (Cutoff=25)
[2021-04-19 20:22] LABS: Acetaminophen < 10 mcg/mL (10-20); Alanine Aminotransferase 24 Units/L (7-52); Albumin/Globulin Ratio 1.4 (1.1-2.2); Alkaline Phosphatase 86 Units/L (34-104); Aspartate Amino Transferase 19 Units/L (13-39); BUN/Creatinine Ratio 12 (6-26); Bilirubin,Direct 0.1 mg/dL (0.0-0.2); Bilirubin,Indirect 0.2 mg/dL (0.0-1.0); Bilirubin,Total 0.3 mg/dL (0.3-1.0); Blood Urea Nitrogen 10 mg/dL (6-20); Calcium 8.8 mg/dL (8.6-10.3); Carbon Dioxide 22 mEq/L (23-29); Chloride 106 mEq/L (98-107); Ethanol 296 mg/dL (Less than 10); Globulin 2.9 g/dL (2.4-3.5); Glucose 98 mg/dL (70-105); Magnesium 2.1 mg/dL (1.6-2.6); Osmolality,Calculated 295 (280-300); Potassium 3.8 mEq/L (3.5-5.1); Salicylate < 2.5 mg/dL (15.0-30.0); Sodium 143 mEq/L (136-145); Total Protein 6.9 g/dL (6.4-8.9); eGFR For African Americans > 60 (> 60); eGFR For Non-African Americans > 60 (> 60)
[2021-04-19] MEDS ORDERED: *HR* LORazepam 2 MG/ML VIAL IVP ONE (20:47)
[2021-04-19 21:35] LABS: Influenza A PCR Negative (Negative); Influenza B PCR Negative (Negative); Resp. Syncytial Virus PCR Negative (Negative)
[2021-04-19 21:38] LABS: SARS-CoV-2 by PCR (In House) Negative (Negative)
[2021-04-19] MEDS ORDERED: Melatonin 3 MG TABLET PO PRN (23:50)
[2021-04-19] MEDS ORDERED: Ondansetron 4 MG/2 ML VIAL IVP PRN (23:50)
[2021-04-19] MEDS ORDERED: Naloxone 0.4 MG/ML INJ IVP PRN (23:50)
[2021-04-20 05:05] LABS: Basophils # 0.1 K/mcL (0.0-0.2); Basophils % 0.8 %; Eosinophils # 0.3 K/mcL (0.0-0.6); Eosinophils % 5.2 %; Hematocrit 38.1 % (37.5-50.1); Immature Granulocytes % 1.7 % (0-4); Lymphocytes # 1.7 K/mcL (0.6-4.6); Lymphocytes % 28.4 %; Mean Corpuscular HGB Conc 34.1 g/dL (31.6-35.5); Mean Corpuscular Hemoglobin 31.3 pg (28.0-33.3); Mean Corpuscular Volume 91.6 fL (83.0-100.0); Monocytes # 0.3 K/mcL (0.0-1.3); Monocytes % 5.7 %; Neutrophils # 3.4 K/mcL (1.6-8.9); Platelet Count 289 K/mcL (140-400); Red Blood Count 4.16 M/mcL (4.19-5.50); Red Cell Distribution Width 15.8 % (11.5-14.5); Segmented Neutrophils % 58.2 %; White Blood Count 5.9 K/mcL (4.3-11.1)
[2021-04-20 05:23] LABS: BUN/Creatinine Ratio 12 (6-26); Blood Urea Nitrogen 11 mg/dL (6-20); Calcium 8.3 mg/dL (8.6-10.3); Carbon Dioxide 21 mEq/L (23-29); Chloride 111 mEq/L (98-107); Glucose 141 mg/dL (70-105); Osmolality,Calculated 296 (280-300); Potassium 3.8 mEq/L (3.5-5.1); Sodium 142 mEq/L (136-145); eGFR For African Americans > 60 (> 60); eGFR For Non-African Americans > 60 (> 60)
[2021-04-20] MEDS: Folic Acid 1 MG TABLET PO SCH (09:23)
[2021-04-20] MEDS: Thiamine (B-1) 100 MG TABLET PO SCH (09:23)
[2021-04-20] MEDS: Calcium Gluconate 1gm/50mL 1 GM/50 ML BAG IVPB SCH ×2 (09:55→10:41)
[2021-04-20] MEDS: Ringers Solution, Lactated 1,000 ML IVC SCH (13:43)
[2021-04-20] MEDS ORDERED: *HR* LORazepam 2 MG/ML VIAL IVP PRN ×2 (13:53)
[2021-04-20] MEDS: *HR* LORazepam 2 MG/ML VIAL IVP PRN (14:30)
[2021-04-20] MEDS: OXcarbazepine 150 MG TABLET PO SCH (21:31)
[2021-04-20] MEDS: risperiDONE 1 MG TABLET PO SCH (21:31)
[2021-04-20] MEDS: Gabapentin 400 MG CAPSULE PO SCH (21:31)
[2021-04-20] MEDS ORDERED: D5% in Water 1,000 ML IVC PRN (21:40)
[2021-04-20] MEDS ORDERED: Dextrose Gel 15 GM/37.5 ML TUBE PO PRN ×2 (21:40)
[2021-04-20] MEDS ORDERED: *HR* Dextrose 50 % in Water (Vial) 50 ML VIAL IVP PRN (21:40)
[2021-04-20] MEDS ORDERED: Ipratropium/Albuterol Neb 3 ML IH PRN (21:45)
[2021-04-20] MEDS: Nicotine 2 MG GUM BC SCH (22:52)
[2021-04-21] MEDS: Ringers Solution, Lactated 1,000 ML IVC SCH (01:22)
[2021-04-21] MEDS: Nicotine 2 MG GUM BC SCH ×9 (06:25→22:36)
[2021-04-21] MEDS: Insulin LISPRO 300 UNITS/3 ML VIAL SUBQ SCH ×4 (08:24→21:03)
[2021-04-21] MEDS: risperiDONE 1 MG TABLET PO SCH (08:30)
[2021-04-21] MEDS: Nicotine 14 MG PATCH.TD24 TD SCH (08:30)
[2021-04-21] MEDS: Gabapentin 400 MG CAPSULE PO SCH ×3 (08:30→19:28)
[2021-04-21] MEDS: Folic Acid 1 MG TABLET PO SCH (08:31)
[2021-04-21] MEDS: Mirtazapine 15 MG TABLET PO SCH (08:31)
[2021-04-21] MEDS: Thiamine (B-1) 100 MG TABLET PO SCH (08:31)
[2021-04-21] MEDS: lisinopriL 20 MG TABLET PO SCH (08:32)
[2021-04-21 10:13] LABS: Hematocrit 41.4 % (37.5-50.1); Mean Corpuscular HGB Conc 33.8 g/dL (31.6-35.5); Mean Corpuscular Hemoglobin 31.1 pg (28.0-33.3); Mean Platelet Volume 8.8 fL (9.4-12.4); Platelet Count 278 K/mcL (140-400); Red Cell Distribution Width 15.5 % (11.5-14.5); White Blood Count 7.3 K/mcL (4.3-11.1)
[2021-04-21 10:33] LABS: Alanine Aminotransferase 18 Units/L (7-52); Albumin 3.7 g/dL (3.5-5.7); Albumin/Globulin Ratio 1.5 (1.1-2.2); Alkaline Phosphatase 90 Units/L (34-104); Aspartate Amino Transferase 15 Units/L (13-39); BUN/Creatinine Ratio 14 (6-26); Bilirubin,Total 0.5 mg/dL (0.3-1.0); Blood Urea Nitrogen 14 mg/dL (6-20); Calcium 8.8 mg/dL (8.6-10.3); Carbon Dioxide 27 mEq/L (23-29); Chloride 103 mEq/L (98-107); Globulin 2.5 g/dL (2.4-3.5); Glucose 176 mg/dL (70-105); Magnesium 1.8 mg/dL (1.6-2.6); Osmolality,Calculated 297 (280-300); Phosphorous 2.8 mg/dL (2.7-4.5); Potassium 4.2 mEq/L (3.5-5.1); Sodium 141 mEq/L (136-145); Total Protein 6.2 g/dL (6.4-8.9); eGFR For African Americans > 60 (> 60); eGFR For Non-African Americans > 60 (> 60)
[2021-04-21 11:13] LABS: Estimated Average Glucose 146 mg/dl; Hemoglobin A1C 6.7 %
[2021-04-21] MEDS: OXcarbazepine 150 MG TABLET PO SCH (19:28)
[2021-04-21] MEDS: *HR* LORazepam 2 MG/ML VIAL IVP PRN (20:07)
[2021-04-22 01:22] LABS: Hematocrit 39.9 % (37.5-50.1); Hemoglobin 13.4 g/dL (12.9-16.9); Mean Corpuscular HGB Conc 33.6 g/dL (31.6-35.5); Mean Corpuscular Hemoglobin 31.1 pg (28.0-33.3); Mean Corpuscular Volume 92.6 fL (83.0-100.0); Mean Platelet Volume 9.1 fL (9.4-12.4); Platelet Count 271 K/mcL (140-400); Red Blood Count 4.31 M/mcL (4.19-5.50); Red Cell Distribution Width 15.3 % (11.5-14.5); White Blood Count 8.5 K/mcL (4.3-11.1)
[2021-04-22 01:43] LABS: Alanine Aminotransferase 17 Units/L (7-52); Albumin 3.7 g/dL (3.5-5.7); Albumin/Globulin Ratio 1.5 (1.1-2.2); Alkaline Phosphatase 97 Units/L (34-104); Aspartate Amino Transferase 16 Units/L (13-39); BUN/Creatinine Ratio 19 (6-26); Bilirubin,Total 0.3 mg/dL (0.3-1.0); Blood Urea Nitrogen 18 mg/dL (6-20); Calcium 8.6 mg/dL (8.6-10.3); Carbon Dioxide 24 mEq/L (23-29); Chloride 103 mEq/L (98-107); Globulin 2.5 g/dL (2.4-3.5); Glucose 165 mg/dL (70-105); Magnesium 1.9 mg/dL (1.6-2.6); Osmolality,Calculated 294 (280-300); Phosphorous 3.2 mg/dL (2.7-4.5); Potassium 3.9 mEq/L (3.5-5.1); Sodium 139 mEq/L (136-145); Total Protein 6.2 g/dL (6.4-8.9); eGFR For African Americans > 60 (> 60); eGFR For Non-African Americans > 60 (> 60)
[2021-04-22] MEDS: Nicotine 2 MG GUM BC SCH ×8 (06:00→21:10)
[2021-04-22] MEDS: Gabapentin 400 MG CAPSULE PO SCH ×3 (08:37→21:09)
[2021-04-22] MEDS: Thiamine (B-1) 100 MG TABLET PO SCH (08:37)
[2021-04-22] MEDS: lisinopriL 20 MG TABLET PO SCH (08:37)
[2021-04-22] MEDS: Folic Acid 1 MG TABLET PO SCH (08:37)
[2021-04-22] MEDS: risperiDONE 1 MG TABLET PO SCH (08:37)
[2021-04-22] MEDS: Mirtazapine 15 MG TABLET PO SCH (08:37)
[2021-04-22] MEDS: Nicotine 14 MG PATCH.TD24 TD SCH (08:38)
[2021-04-22] MEDS: Insulin LISPRO 300 UNITS/3 ML VIAL SUBQ SCH ×4 (08:38→21:10)
[2021-04-22] MEDS: OXcarbazepine 150 MG TABLET PO SCH (21:10)
[2021-04-23] MEDS: Nicotine 2 MG GUM BC SCH ×5 (00:21→13:46)
[2021-04-23 06:12] LABS: Hematocrit 44.8 % (37.5-50.1); Hemoglobin 14.4 g/dL (12.9-16.9); Mean Corpuscular HGB Conc 32.1 g/dL (31.6-35.5); Mean Corpuscular Hemoglobin 30.3 pg (28.0-33.3); Mean Corpuscular Volume 94.1 fL (83.0-100.0); Mean Platelet Volume 9.4 fL (9.4-12.4); Platelet Count 269 K/mcL (140-400); Red Blood Count 4.76 M/mcL (4.19-5.50); Red Cell Distribution Width 15.4 % (11.5-14.5); White Blood Count 8.3 K/mcL (4.3-11.1)
[2021-04-23 06:30] LABS: BUN/Creatinine Ratio 23 (6-26); Blood Urea Nitrogen 21 mg/dL (6-20); Calcium 9.1 mg/dL (8.6-10.3); Carbon Dioxide 28 mEq/L (23-29); Chloride 105 mEq/L (98-107); Glucose 121 mg/dL (70-105); Magnesium 1.9 mg/dL (1.6-2.6); Osmolality,Calculated 292 (280-300); Phosphorous 3.4 mg/dL (2.7-4.5); Potassium 4.3 mEq/L (3.5-5.1); Sodium 139 mEq/L (136-145); eGFR For African Americans > 60 (> 60); eGFR For Non-African Americans > 60 (> 60)
[2021-04-23] MEDS: Insulin LISPRO 300 UNITS/3 ML VIAL SUBQ SCH ×2 (08:50→12:17)
[2021-04-23] MEDS: Mirtazapine 15 MG TABLET PO SCH (08:56)
[2021-04-23] MEDS: Nicotine 14 MG PATCH.TD24 TD SCH (08:56)
[2021-04-23] MEDS: Thiamine (B-1) 100 MG TABLET PO SCH (08:56)
[2021-04-23] MEDS: Gabapentin 400 MG CAPSULE PO SCH ×2 (08:56→15:27)
[2021-04-23] MEDS: risperiDONE 1 MG TABLET PO SCH (08:56)
[2021-04-23] MEDS: lisinopriL 20 MG TABLET PO SCH (08:56)
[2021-04-23] MEDS: Folic Acid 1 MG TABLET PO SCH (08:56)
[2021-04-23 10:58] VITALS: BP 105/70
== END 2021-04-23 17:00 | disposition home or self-care (01) | DRG 897 ==
LOC: EMEROOARM 18:03 → 3ANU 18:03 → SUATTDRO 23:14 → 3ANU 23:51
PROVIDERS: ADMIT Family Medicine; ATTEND Internal Medicine

== ENCOUNTER 2021-12-23 11:47 | Observation (INO) ==
[2021-12-23 12:17] LABS: Basophils # 0.1 K/mcL (0.0-0.2); Basophils % 0.9 %; Eosinophils # 0.5 K/mcL (0.0-0.6); Hematocrit 51.5 % (37.5-50.1); Immature Granulocytes % 0.4 % (0-4); Lymphocytes % 20.1 %; Mean Corpuscular Hemoglobin 29.3 pg (28.0-33.3); Mean Corpuscular Volume 88.8 fL (83.0-100.0); Mean Platelet Volume 9.2 fL (9.4-12.4); Monocytes # 0.6 K/mcL (0.0-1.3); Monocytes % 5.8 %; Neutrophils # 6.6 K/mcL (1.6-8.9); Platelet Count 328 K/mcL (140-400); Red Cell Distribution Width 13.7 % (11.5-14.5); Segmented Neutrophils % 67.8 %; White Blood Count 9.8 K/mcL (4.3-11.1)
[2021-12-23 12:24] LABS: Bilirubin,Urine Negative (Negative); Blood,Urine Negative (Negative); Clarity,Urine Clear (Clear); Color,Urine Colorless (Yellow); Glucose,Urine (UA) Normal (Normal); Ketones,Urine Negative (Negative); Leukocyte Esterase,Urine Negative (Negative); Nitrite,Urine Negative (Negative); Protein,Urine Negative (Neg-Trace); Specific Gravity,Urine < 1.005 (1.010-1.025); Urobilinogen,Urine Normal (Normal)
[2021-12-23 12:27] LABS: Amphetamine Screen,Urine Negative ng/mL (Cutoff=1000); Barbiturate Screen,Urine Negative ng/mL (Cutoff=200); Benzodiazepines Screen,Urine Negative ng/mL (Cutoff=200); Cannabinoid Screen,Urine Negative ng/mL (Cutoff = 50); Cocaine Screen,Urine Negative ng/mL (Cutoff= 300); Opiate Screen,Urine Negative ng/mL (Cutoff=300); Phencyclidine Screen,Urine Negative ng/mL (Cutoff=25)
[2021-12-23 12:39] LABS: Alanine Aminotransferase 16 Units/L (7-52); Albumin 4.5 g/dL (3.5-5.7); Albumin/Globulin Ratio 1.5 (1.1-2.2); Alkaline Phosphatase 91 Units/L (34-104); Aspartate Amino Transferase 16 Units/L (13-39); BUN/Creatinine Ratio 13 (6-26); Bilirubin,Total 0.2 mg/dL (0.3-1.0); Blood Urea Nitrogen 9 mg/dL (8-23); Calcium 9.4 mg/dL (8.6-10.3); Carbon Dioxide 19 mEq/L (23-29); Chloride 108 mEq/L (98-107); Ethanol 367 mg/dL (Less than 10); Glucose 130 mg/dL (70-105); Osmolality,Calculated 292 (280-300); Potassium 3.8 mEq/L (3.5-5.1); Sodium 141 mEq/L (136-145); Total Protein 7.5 g/dL (6.4-8.9); eGFR For African Americans > 60 (> 60); eGFR For Non-African Americans > 60 (> 60)
[2021-12-23 12:40] LABS: Troponin I < 0.03 ng/mL (< 0.04)
[2021-12-23 12:52] LABS: Influenza A PCR Negative (Negative); Influenza B PCR Negative (Negative); Resp. Syncytial Virus PCR Negative (Negative)
[2021-12-23 12:59] LABS: SARS-CoV-2 by PCR (In House) Negative (Negative)
[2021-12-23 16:47] LABS: Acetaminophen < 10 mcg/mL (10-20); Ethanol 268 mg/dL (Less than 10); Salicylate < 2.5 mg/dL (15.0-30.0)
[2021-12-23] MEDS ORDERED: Haloperidol Lactate 5 MG/ML VIAL IM ONE (16:54)
[2021-12-24] MEDS ORDERED: Naloxone 0.4 MG/ML INJ IVP PRN (00:39)
[2021-12-24] MEDS ORDERED: D5% in Water 1,000 ML IVC PRN (00:42)
[2021-12-24] MEDS ORDERED: Dextrose Gel 15 GM/37.5 ML TUBE PO PRN ×2 (00:42)
[2021-12-24] MEDS ORDERED: *HR* LORazepam 2 MG/ML VIAL IVP PRN ×2 (00:42)
[2021-12-24] MEDS ORDERED: *HR* Dextrose 50 % in Water (Syg) 50 ML SYRINGE IVP PRN (00:42)
[2021-12-24] MEDS ORDERED: Ringers Solution, Lactated 1,000 ML IVC SCH (00:45)
[2021-12-24] MEDS: Ondansetron 4 MG/2 ML VIAL IVP PRN ×2 (02:15→09:40)
[2021-12-24] MEDS: Melatonin 3 MG TABLET PO PRN (02:15)
[2021-12-24] MEDS: Acetaminophen 325 MG TABLET PO PRN ×3 (02:15→15:57)
[2021-12-24 06:05] LABS: Basophils # 0.1 K/mcL (0.0-0.2); Basophils % 0.6 %; Eosinophils # 0.4 K/mcL (0.0-0.6); Eosinophils % 3.4 %; Hematocrit 42.1 % (37.5-50.1); Immature Granulocytes % 0.6 % (0-4); Lymphocytes # 1.9 K/mcL (0.6-4.6); Lymphocytes % 17.8 %; Mean Corpuscular HGB Conc 32.8 g/dL (31.6-35.5); Mean Corpuscular Hemoglobin 29.2 pg (28.0-33.3); Mean Platelet Volume 9.5 fL (9.4-12.4); Monocytes # 0.6 K/mcL (0.0-1.3); Monocytes % 5.9 %; Neutrophils # 7.7 K/mcL (1.6-8.9); Platelet Count 261 K/mcL (140-400); Red Blood Count 4.73 M/mcL (4.19-5.50); Red Cell Distribution Width 13.5 % (11.5-14.5); Segmented Neutrophils % 71.7 %; White Blood Count 10.7 K/mcL (4.3-11.1)
[2021-12-24] MEDS: *HR* Enoxaparin 40 MG/0.4 ML SYRINGE SQ SCH (06:12)
[2021-12-24 06:14] LABS: BUN/Creatinine Ratio 16 (6-26); Blood Urea Nitrogen 12 mg/dL (8-23); Calcium 8.5 mg/dL (8.6-10.3); Carbon Dioxide 26 mEq/L (23-29); Chloride 106 mEq/L (98-107); Glucose 98 mg/dL (70-105); Osmolality,Calculated 288 (280-300); Potassium 3.8 mEq/L (3.5-5.1); Sodium 139 mEq/L (136-145); eGFR For African Americans > 60 (> 60); eGFR For Non-African Americans > 60 (> 60)
[2021-12-24 06:16] LABS: Hemoglobin 13.8 g/dL (12.9-16.9)
[2021-12-24] MEDS: Insulin LISPRO 300 UNITS/3 ML VIAL SUBQ SCH ×4 (08:27→20:09)
[2021-12-24] MEDS: Thiamine (B-1) 100 MG TABLET PO SCH (08:33)
[2021-12-24] MEDS: Folic Acid 1 MG TABLET PO SCH (08:33)
[2021-12-24] MEDS: *HR* LORazepam 2 MG/ML VIAL IVP PRN ×2 (11:36→17:04)
[2021-12-24] MEDS: Nicotine 14 MG PATCH.TD24 TD SCH (16:56)
[2021-12-24] MEDS: *HR* Promethazine 25 MG/ML VIAL IM PRN (20:34)
[2021-12-25] MEDS: *HR* Enoxaparin 40 MG/0.4 ML SYRINGE SQ SCH (05:38)
[2021-12-25] MEDS: Insulin LISPRO 300 UNITS/3 ML VIAL SUBQ SCH ×4 (08:09→20:09)
[2021-12-25] MEDS: Folic Acid 1 MG TABLET PO SCH (09:55)
[2021-12-25] MEDS: Thiamine (B-1) 100 MG TABLET PO SCH (09:55)
[2021-12-25] MEDS: Nicotine 14 MG PATCH.TD24 TD SCH (09:55)
[2021-12-25] MEDS: Acetaminophen 325 MG TABLET PO PRN (10:03)
[2021-12-25] MEDS: Ondansetron 4 MG/2 ML VIAL IVP PRN (10:03)
[2021-12-25] MEDS: Gabapentin 400 MG CAPSULE PO SCH ×2 (15:39→20:07)
[2021-12-25] MEDS: *HR* Promethazine 25 MG/ML VIAL IM PRN (19:28)
[2021-12-26 05:38] LABS: Basophils # 0.1 K/mcL (0.0-0.2); Basophils % 0.7 %; Eosinophils # 0.4 K/mcL (0.0-0.6); Hematocrit 45.5 % (37.5-50.1); Immature Granulocytes % 0.4 % (0-4); Lymphocytes # 1.9 K/mcL (0.6-4.6); Lymphocytes % 24.6 %; Mean Corpuscular Hemoglobin 29.1 pg (28.0-33.3); Mean Corpuscular Volume 88.2 fL (83.0-100.0); Mean Platelet Volume 9.8 fL (9.4-12.4); Monocytes # 0.6 K/mcL (0.0-1.3); Monocytes % 7.4 %; Neutrophils # 4.7 K/mcL (1.6-8.9); Platelet Count 248 K/mcL (140-400); Red Blood Count 5.16 M/mcL (4.19-5.50); Red Cell Distribution Width 13.2 % (11.5-14.5); Segmented Neutrophils % 61.9 %; White Blood Count 7.6 K/mcL (4.3-11.1)
[2021-12-26] MEDS: *HR* Enoxaparin 40 MG/0.4 ML SYRINGE SQ SCH (05:59)
[2021-12-26 06:49] LABS: BUN/Creatinine Ratio 18 (6-26); Blood Urea Nitrogen 14 mg/dL (8-23); Calcium 8.7 mg/dL (8.6-10.3); Carbon Dioxide 26 mEq/L (23-29); Chloride 106 mEq/L (98-107); Glucose 85 mg/dL (70-105); Magnesium 1.8 mg/dL (1.6-2.6); Osmolality,Calculated 292 (280-300); Phosphorous 3.1 mg/dL (2.7-4.5); Potassium 3.5 mEq/L (3.5-5.1); Sodium 141 mEq/L (136-145); eGFR For African Americans > 60 (> 60); eGFR For Non-African Americans > 60 (> 60)
[2021-12-26] MEDS: Insulin LISPRO 300 UNITS/3 ML VIAL SUBQ SCH ×4 (08:58→20:35)
[2021-12-26] MEDS ORDERED: Mirtazapine 15 MG TABLET PO SCH ×2 (09:00→23:45)
[2021-12-26] MEDS: Folic Acid 1 MG TABLET PO SCH (09:11)
[2021-12-26] MEDS: Thiamine (B-1) 100 MG TABLET PO SCH (09:11)
[2021-12-26] MEDS: Gabapentin 400 MG CAPSULE PO SCH ×3 (09:11→20:34)
[2021-12-26] MEDS: Nicotine 14 MG PATCH.TD24 TD SCH (09:11)
[2021-12-26] MEDS: Melatonin 3 MG TABLET PO PRN (23:22)
[2021-12-26] MEDS: *HR* Promethazine 25 MG/ML VIAL IM PRN (23:23)
[2021-12-27] MEDS: *HR* Enoxaparin 40 MG/0.4 ML SYRINGE SQ SCH (05:58)
[2021-12-27] MEDS: Insulin LISPRO 300 UNITS/3 ML VIAL SUBQ SCH ×3 (08:31→17:18)
[2021-12-27] MEDS: Gabapentin 400 MG CAPSULE PO SCH ×2 (08:52→17:24)
[2021-12-27] MEDS: Folic Acid 1 MG TABLET PO SCH (08:53)
[2021-12-27] MEDS: Nicotine 14 MG PATCH.TD24 TD SCH (08:53)
[2021-12-27] MEDS: Thiamine (B-1) 100 MG TABLET PO SCH (08:53)
[2021-12-27 11:52] VITALS: PULSE 88
[2021-12-27 15:36] VITALS: BP 156/93; TEMP 98.8; O2SAT 98
[2021-12-27 16:33] LABS: Adenovirus Not Detected (Not Detect); Bordetella Pertussis Not Detected (Not Detect); Chlamydophila pneumoniae Not Detected (Not Detect); Coronavirus 229E Not Detected (Not Detect); Coronavirus HKU1 Not Detected (Not Detect); Coronavirus NL63 Not Detected (Not Detect); Coronavirus OC43 Not Detected (Not Detect); Human Metapneumovirus Not Detected (Not Detect); Human Rhinovirus/Enterovirus Not Detected (Not Detect); Influenza A Subtype 2009 H1 Not Detected (Not Detect); Influenza B Not Detected (Not Detect); Mycoplasma pneumoniae Not Detected (Not Detect); Parainfluenza Virus 1 Not Detected (Not Detect); Parainfluenza Virus 2 Not Detected (Not Detect); Parainfluenza Virus 3 Not Detected (Not Detect); Parainfluenza Virus 4 Not Detected (Not Detect); Respiratory Syncytial Virus Not Detected (Not Detect); SARS-CoV-2 Not Detected (Not Detect)
[2021-12-27] MEDS ORDERED: Moderna Covid-19 Vaccine 100MCG/0.5mL IM ONE (17:28)
== END 2021-12-27 18:00 ==
LOC: 3ANU 11:47 → EMEROOARM 11:47 → SUATTDRO 12-24 00:58 → 3ANU 12-24 01:40
PROVIDERS: ADMIT Internal Medicine; ATTEND Internal Medicine